=== PATIENT | male | born 1965 | race Caucasian/White ===

== ENCOUNTER 2025-01-26 14:43 | Emergency (ER) | payer BC, MEDICAID, SELFPAY ==
[2025-01-26 14:52] VITALS: BP 134/103; PULSE 95; RESP 17; TEMP 36.8; O2SAT 96; BMI 25.0
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
--- NOTE | 2025-01-26 15:00 | ECG_ITS ---
[facility]: 2025-01[facility]26 Pat Name: Martin Eisenberg Department: Room: Gender: Male Political Advisor: : 1965 Requested By: Carmine Wang Order Number: [id number] Gordon MD: Clif Roblero M.D. Measurements Intervals [place] Rate: 71 P: 86 ME: 160 QRS: 58 QRSD: 73 T: 83 QT: 355 QTc: 388 Interpretive Statements SINUS RHYTHM No previous ECG available for comparison Electronically Signed On 01-26-2025 22:17:05 DRILL PRESSER by Clif Roblero M.D. [email or web address]
--- NOTE | 2025-01-26 15:00 | XR_ITS ---
WS: [id number] Portable AP upright chest, 01/26/2025 Clinical Data: fall, chest trauma Comparison: None. Findings: No nodules, masses or effusions are seen. The heart is normal. The pulmonary vascularity is not increased. No pneumonia or pneumothorax is seen. The diaphragms are flattened. The aortic arch and descending thoracic aorta show calcification and tortuosity. There are monitor leads on the chest wall. XR/XR chest 1V portable [id number] Impression: Atherosclerosis and hyperinflation.
[2025-01-26 15:04] VITALS: BP 138/85; PULSE 87; O2SAT 90
[2025-01-26 15:30] VITALS: BP 141/104; PULSE 95; O2SAT 95
[2025-01-26 16:03] LABS: Hematocrit 45.2 % (37-53); Hemoglobin 15.50 g/dL (11.27-16.99); Mean Corpuscular HGB Conc 34.3 g/dL (30-55); Mean Corpuscular Hemoglobin 33.7 pg (27-33); Mean Corpuscular Volume 98.3 fl (82-101); Nucleated Red Blood Cells % 0 %; Platelet Count 234 10^3/cmm (157-399); Red Blood Count 4.60 10^6/uL (3.85-5.65); White Blood Count 4.01 10^3/uL (3.29-11.43)
[2025-01-26 16:28] LABS: Alanine Aminotransferase 25 U/L (0-41); Albumin Level 4.0 g/dL (3.5-5.2); Alkaline Phosphatase 75 U/L (40-130); Anion Gap 18.2 (5-19); Aspartate Amino Transferase 51 U/L (0-40); Blood Urea Nitrogen 9 mg/dL (8-23); Calcium 8.6 mg/dL (8.5-10.5); Carbon Dioxide 27 mmol/L (22-29); Chloride 102 mmol/L (98-107); Creatinine Clr Calc Pharmacy 131.4393; Globulin 2.8 g/dL (1.3-4.6); Glucose 84 mg/dL (65-115); Osmolality Calculated 294 mOsm/kg (285-295); Potassium 4.2 mmol/L (3.5-5.1); Sodium 143 mmol/L (136-145); Total Protein 6.8 g/dL (6.6-8.7)
[2025-01-26 16:32] LABS: Alcohol Level 364 mg/dL (0-10)
[2025-01-26 16:43] VITALS: BP 140/78; PULSE 76; O2SAT 95
[2025-01-26 17:00] VITALS: BP 126/77; PULSE 90; O2SAT 93
[2025-01-26 17:30] VITALS: BP 126/77; PULSE 90; O2SAT 93
--- NOTE | 2025-01-28 07:22 | DCPLANNER ---
messaged [facility] to establish pcp
== END 2025-01-26 19:05 | disposition home or self-care (01) ==
PROVIDERS: Emergency Provider Physician Assistant
DX: F10.129 Alcohol abuse with intoxication, unspecified (principal); Y90.8 Blood alcohol level of 240 mg/100 ml or more; S20.219A Contusion of unspecified front wall of thorax, initial encounter; W19.XXXA Unspecified fall, initial encounter
CPT/HCPCS: 36415; 71045; 80053; 80307; 85025; 93005; 99285

== ENCOUNTER 2025-03-17 14:47 | Inpatient (IN) | payer BC, MEDICAID, SELFPAY ==
--- NOTE | 2025-03-17 14:48 | ECG_ITS ---
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
--- NOTE | 2025-03-17 14:48 | ED.C_ITS ---
HPI - Psych 2 General: Chief Complaint: Psychiatric Symptoms Stated Complaint: MHE Time Seen by Provider: 03/17/25 14:48 History of Present Illness: 59-year-old man with a history of schizo phrenia who presents emergency room with police with concerns for worsening hallucinations and psychosis. He admitted to having done some methamphetamine recently which may have worsened things. He says he has not been taking his medications. He expresses some understanding he is seeing things that are not there. Police report that they have been called out to his house several times. He would call with concerns for people being in his house or on his property and when they would arrive there there would be nothing there. Police say that he had said spoke to see that person right there and there was no one there. Related Data Home Medications ?Medication ?Instructions ?Recorded ?Confirmed No Known Home Medications 01/26/2507/17 Allergies Allergy/AdvReac Type Severity Reaction Status Date / Time No Known Allergies Allergy Verified 01/26/25 14:57 Review of Systems 2 Narrative: Constitutional symptoms: Negative except as documented in HPI. Skin symptoms: Negative except as documented in HPI. Eye symptoms: Negative except as documented in HPI. ENMT symptoms: Negative except as documented in HPI. Respiratory symptoms: Negative except as documented in HPI. Cardiovascular symptoms: Negative except as documented in HPI. Gastrointestinal symptoms: Negative except as documented in HPI. Genitourinary symptoms: Negative except as documented in HPI. Musculoskeletal symptoms: Negative except as documented in HPI. Neurologic symptoms: Negative except as documented in HPI. Psychiatric symptoms: Negative except as documented in HPI. Endocrine symptoms: Negative except as documented in HPI. Physical Exam 2 Narrative: EXAM NARRATIVE: General: Alert, no acute distress. Skin: Warm, dry. Head: Normocephalic, atraumatic. Neck: Supple, trachea midline. Eye: Extraocular movements are intact. Ears, nose, mouth and throat: mucosa moist. Cardiovascular: Regular, Normal peripheral perfusion. Respiratory: Lungs are clear to auscultation, respirations are non-labored, breath sounds are equal, Symmetrical chest wall expansion. Gastrointestinal: Soft, Nontender, Non distended Musculoskeletal: Normal ROM, no deformity. Neurological: Alert and oriented, No focal neurological deficit observed. Psychiatric: Cooperative, patient does have an odd affect. He does admit to seeing things that may not be there. Course 2 Vital Signs: Vital signs: Vital Signs Temperature 98.3 F 03/17/25 14:49 Pulse Rate 95 03/17/25 14:49 Respiratory Rate 16 03/17/25 14:49 Blood Pressure 142/90 03/17/25 14:49 Pulse Oximetry 98 03/17/25 14:49 Oxygen Delivery Me thod Room Air 03/17/25 14:49 MDM - Psych Medical Decision Making Medical decision making: Patient's reason for coming to the emergency room: Brought by police for hallucination Social determinants: Patient is disabled I reviewed the patient's medical record. Patient has no listed other visits to the emergency room here except for in January for chest wall contusion. No previous psychiatric admissions here. I reviewed the patient's current home meds Patient says he is currently taking no meds. Alternate historians: Police Differential diagnosis for patient with reported psychosis with plan for psychiatric admission including but not limited to and based on the above HPI, review of systems and physical exam: concerns for infection, alcohol intoxication, cardiac issues or other medical problems prior to psychiatric admission. Orders placed to evaluate differential diagnosis based on the above differential, HPI and physical exam labwork, ekg ordered to evaluate the pathologies and to clear the patient medically prior to psychiatric admission EKG: Time 1523. Rate 76. Normal sinus rhythm, No ST-T changes, PVCs, normal [place] & QRS intervals, This was reviewed and interpreted by myself the ER physician at 1530 Lab Review: Laboratory results were reviewed and interpreted by myself the emergency room physician. - Medically cleared. - EKG shows no ischemic changes. - Blood alcohol level is negative, as well as salicylate and Tylenol. - Drug screen and urinalysis are pending at admission - No anemia. - BUN and creatinine are within normal limits. Assessment of risk - Level of risk: Moderate to high risk. Patient is noncompliant with medications and having worsening hallucinations and drug abuse - Was hospitalization considered? Patient placed on a hold and admitted. Consultation: I spoke with Dr. Pal who is on-call for psychiatry who agrees to admission Assessment and plan: Psychosis Schizophrenia Medical noncompliance -Admission to neuropsychiatric unit for continued evaluation and treatment. - All lab work was reviewed and interpreted personally by myself, the ER physician - Evaluation and treatment of this problem were appropriate in the emergency setting Lab Data 03/17/25 15:05 03/17/25 15:05 Laboratory Results WBC 7.91 10^3/uL (3.29-11.43) 03/17/25 15:05 RBC 4.66 10^6/uL (3.85-5.65) 03/17/25 15:05 Hgb 15.60 g/dL (11.27-16.99) 03/17/25 15:05 Hct 49.0 % (37-53) 03/17/25 15:05 MCV 105.2 fl (82-101) H 03/17/25 15:05 MCH 33.5 pg (27-33) H 03/17/25 15:05 MCHC 31.8 g/dL (30-55) 03/17/25 15:05 RDW 12.8 % (12.1-15.1) 03/17/25 15:05 Plt Count 205 10^3/cmm (157-399) 03/17/25 15:05 MPV 10.4 fL (7.4-10.4) 03/17/25 15:05 Neut % (Auto) 78.1 % 03/17/25 15:05 Lymph % (Auto) 11.8 % 03/17/25 15:05 [place] % (Auto) 9.0 % 03/17/25 15:05 Eos % (Auto) 0.1 % 03/17/25 15:05 Baso % (Auto) 0.6 % 03/17/25 15:05 Neut # (Auto) 6.18 10^3/uL (1.8-7.7) 03/17/25 15:05 Lymph # (Auto) 0.9 10^3/uL (0.8-4.8) 03/17/25 15:05 [place] # (Auto) 0.7 10^3/uL (0.2-0.9) 03/17/25 15:05 Eos # (Auto) 0.0 10^3/uL (0.0-0.8) 03/17/25 15:05 Baso # (Auto) 0.1 10^3/uL (0.0-0.1) 03/17/25 15:05 Nucleated RBC % (auto) 0 % 03/17/25 15:05 Nucleated RBCs # 0.0 /100WBC 03/17/25 15:05 Sodium 136 mmol/L (136-145) 03/17/25 15:05 Potassium 3.3 mmol/L (3.5-5.1) L 03/17/25 15:05 Chloride 94 mmol/L (98-107) L 03/17/25 15:05 Carbon Dioxide 25 mmol/L (22-29) 03/17/25 15:05 Anion Gap 20.3 (5-19) H 03/17/25 15:05 BUN 22 mg/dL (8-23) 03/17/25 15:05 Creatinine 1.0 mg/dL (0.7-1.2) 03/17/25 15:05 GFR Calculation 76.2 mL/min (90-130) L 03/17/25 15:05 Glucose 105 mg/dL (65-115) 03/17/25 15:05 Calculated Osmolality 286 mOsm/kg (285-295) 03/17/25 15:05 Calcium 9.9 mg/dL (8.5-10.5) 03/17/25 15:05 Total Bilirubin 1.5 mg/dL (0.15-1.2) H 03/17/25 15:05 AST 72 U/L (0-40) H 03/17/25 15:05 ALT 46 U/L (0-41) H 03/17/25 15:05 Alkaline Phosphatase 81 U/L (40-130) 03/17/25 15:05 Total Protein 7.7 g/dL (6.6-8.7) 03/17/25 15:05 Albumin 4.6 g/dL (3.5-5.2) 03/17/25 15:05 Globulin 3.1 g/dL (1.3-4.6) 03/17/25 15:05 TSH 3.20 uIU/mL (0.27-4.20) 03/17/25 15:05 Salicylates < 0.3 mg/dL (3-10) L 03/17/25 15:05 Acetaminophen < 5.0 ug/mL (10-30) L 03/17/25 15:05 Ethyl Alcohol < 10 mg/dL (0-10) 03/17/25 15:05 No radiology studies performed this visit Discharge Plan Discharge Patient Disposition: Admitted As Inpatient Admit Provider: Mac Pal Clinical Impression: Acute psychosis, Chronic schizophrenia, Medical non-compliance Condition: Stable Coding Level of Care Code ED Accountant Auditor for Topher Ross
[2025-03-17 14:49] VITALS: BP 142/90; PULSE 95; RESP 16; TEMP 36.8; O2SAT 98; BMI 25.0
--- OUTSIDE RECORDS SUMMARY | 2025-03-17 14:51 | XMS_ITS | Encounter Summary ---
Author Organization [facility] Address [address] [place] [address] Care Team Providers Care Food And Beverage Director Name Role Phone Unavailable Primary Care Provider Unavailabl e Reason for Visit * Reason Comments Provider Call Encounter Details Date Type Department Care Team ([facility] st Contact Info) Description 04/07/2024 Telephone [facility] Family Medicine [facility] [place] [address] [place] [address] Sandip Dodge DO [address] [place] [address] Provider Call Social History Tobacco Use Types Packs/Day Years Used Date Smoking Tobacco: Heavy Smoker Cigarettes Smokeless Tobacco: Never Alcohol Use Standard Drinks/Week Comments Yes 0 (1 standard drink = 0.6 oz pur e alcohol) Sex and Gender Information Value Date Recorded Sex Assigned at Not on file Legal 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 Topic: [facility]erse[facility]-Bpnuwiej Call >> Apr 07, 2024 11:11 AM Josselin Erich wrote: Caller is requesting to speak with Clinical Care Team. Caller Name: Marcy ([employer]) Callback Number: [phone] Clinician Type: Other healthcare professional not listed above Call Notes: Marcy calling for NPI numbers. Information provided. Is this addressing an immediate patient care need? No OVEMENT DIRECTOR documented in this encounter Plan of Treatment Not on file documented as of this encounter Visit Diagnoses Not on filedocumented in this encounter Additional Health Concerns Infection Onset Date Last Indicated Resolved Time R/O Respiratory 10/01/2024 10/01/2024 10/01/2024 6 :18 PM CDT R/O GI Pathogen 10/02/2024 10/02/2024 10/03/2024 1 2:57 PM CDT documented as of this encounter
--- OUTSIDE RECORDS SUMMARY | 2025-03-17 14:51 | XMS_ITS | Encounter Summary ---
Author Organization [facility] Address [address] [place] [address] Care Team Providers Care Industrial Renderer Name Role Phone Unavailable Primary Care Provider Unavailabl e Reason for Visit * Reason Comments Needs Form Or Letter Filled Out Encounter Details Date Type Department Care Team (Late st Contact Info) Description 07/23/2024 Telephone [facility] Family Medicine [facility] [address] [place] [phone] Douglas Moss, DO [address] [place] [phone] Needs Form Or Letter Filled Out Social History Tobacco Use Types Packs/Day Years Used Date Smoking Tobacco: Heavy Smoker Cigarettes Passive Smoke Exposure: Current Smokeless Tobacco: Never Alcohol Use Standard Drinks/Week Comments Yes 0 (1 standard drink = 0.6 oz pur e alcohol) ocationally Sex and Gender Information Value Date Recorded Sex Assigned at Not on file 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 Topic: Patient or Caregiver Communication Request >> July 23, 2024 1:10 PM Mendez Infante wrote: Patient or Caregiver requesting that a message be sent to Care Team Caller: Tete with ALYSSA Lopez License Office Patient/Caregiver Callback Number: [phone] Call Notes: ALYSSA Jolly License Office stated physician statement for handicap placard can only be up to 180 days but one patient provided goes for 1 year. PHONE# [phone] documented in this encounter Plan of Treatment [...]
--- OUTSIDE RECORDS SUMMARY | 2025-03-17 14:51 | XMS_ITS | Encounter Summary ---
Author Organization [facility] Address [address] [place] [address] Care Team Providers Care Gang Worker Name Role Phone Unavailable Primary Care Provider Unavailabl e Encounter Details Date Type Department Care Team (Late st Contact Info) Description 03/16/2025 External Device Data [place] ABSTRACTION Provider, Abstract NO ADDRESS ON FILE Social History Tobacco Use Types Packs/Day Years Used Date Smoking Tobacco: Heavy Smoker Cigarettes Passive Smoke Exposure: Current Smokeless Tobacco: Never Alcohol Use Standard Drinks/Week Comments Yes 0 (1 standard drink = 0.6 oz pur e alcohol) ocationally Feeling Safe Answer Date Recorded Are you in a relationship wi th someone who hurts you emotionally and/or physically? 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
--- OUTSIDE RECORDS SUMMARY | 2025-03-17 14:51 | XMS_ITS | Clinical Summary ---
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 30 Capsule 1 04/28/2024 Active mirtazapine (REMERON) 15 mg tabletIndication s:PTSD (post-traumatic stress disorder),Primar y insomnia Take 1 Tablet (15 mg) by mouth daily. 30 Tablet 1 04/28/2024 Active warfarin (COUMADIN) 7.5 mg tabletIndication s:Closed displaced fracture of posterior wall of right acetabulum with delayed healing, subsequent encounter,Antico agulant long-term use Take 1 Tablet (7.5 mg) by mouth daily. 30 Tablet 1 04/28/2024 Active amLODIPine (NORVASC) 5 mg tablet Take 1 Tablet (5 mg) by mouth daily. 30 Tablet 1 10/05/2024 Active thiamine mononitrate (VITAMIN B-1) 100 mg tablet Take 1 Tablet (100 mg) by mouth daily. 30 Tablet 1 10/05/2024 Active metroNIDAZOLE (FLAGYL) 250 mg tabletIndication s:H. pylori infection Take 1 Tablet (250 mg) by mouth 4 times daily. X 2 WEEKS 56 Tablet 10/12/2024 Active Active Problems Problem Noted Date Diagnosed Date Abdominal pain 10/02/2024 Chest pain 10/02/2024 GIB (gastrointestinal bleeding) 10/01/2024 Syncope 10/01/2024 S/P Girdlestone procedure 07/20/2020 Protein-calorie malnutrition, moderate 0 Noncompliance with therapeutic plan 03/22/2020 Acetabulum fracture, right 03/21/2020 Overview (07/22/2020): Added automatically from request for surgery [id number] Acute blood loss anemia 03/11/2020 Hyperglycemia 03/11/2020 Moderate protein-calorie malnutrition 03/11/2020 Closed displaced fracture of posterior wall of right acetabulum 03/10/2020 Closed fracture dislocation of right hip joint 1 05/11/2019 Alcohol use disorder, severe, dependence Major depressive disorder, r ecurrent severe without psychotic features 02/22/2020 Chronic hepatitis C without hepatic coma Overview (07/22/2020): Chronic Hepatitis C genotype ?, treatment naive, viral load 4,120,000, APRI 0.26 Elevated LFTs Resolved Problems Problem Noted Date Diagnosed Date Resolved Date Suicidal ideation 02/21/2020 03/10/2020 Chronic left-sided low back pain with left-sided sciatica 02/10/2019 03/10/2020 Hypokalemia 07/18/2016 03/10/2020 Chest pain 10/20/2015 03/10/2020 Alcohol dependence with intoxication 10/20/2015 03/10/2020 Alcohol dependence with into xication with complication 03/10/2020 Cough 03/10/2020 Abrasion of right hand and fingers 03/10/2020 Alcoholic intoxication with complication 03/10/2020 Encounters Date Type Department Care Team Description 03/16/2025 External Device Data [facility] ABSTRACTION Provider, Abstract 02/02/2025 External Device Data [facility] ABSTRACTION Provider, Abstract 02/02/2025 External Device Data [facility] ABSTRACTION Provider, Abstract 01/05/2025 External Device Data [facility] ABSTRACTION Provider, Abstract from Last 3 Months Immunizations Immunization Administration Dates Next Due (ADACEL/BOOSTRIX)(10 YR UP) TDAP VACCINE, 0.5ML, IM 04/18/2017 (PNEUMOVAX 23)(50 YRS UP) PN EUMOCOCCAL POLYSACCHARIDE (PPV23) 0.5 ML, IM 10/21/2015 INFLUENZA VACCINE QUADRIVALENT 6 MOS UP PF IM Family History Medical History Relation Name Comments Heart Disease Father Heart Surgery Father Relation Name Status Comments Father Mother Social History Tobacco Use Types Packs/Day Years Used Date Smoking Tobacco: Heavy Smoker Cigarettes Passive Smoke Exposure: Current Smokeless Tobacco: Never Tobacco Cessation:Ready to Q uit: Not Asked; Counseling Given: Not Answered Alcohol Use Standard Drinks/Week Comments Yes 0 [...] on file 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 Gender Identity Not on file Sexual Orientation Not on file Last Filed Vital Signs Vital Sign Reading Time Taken Comments Blood Pressure 146/97 10/04/2024 3:27 PM CDT Pulse 73 10/04/2024 3:27 PM CDT Temperature 36.5 C (97.7 F) 10/04/2024 3:27 PM CDT Respiratory Rate 16 10/04/2024 3:27 PM CDT Oxygen Saturation 96% 10/04/2024 3:27 PM CDT Inhaled Oxygen Concentration - - Weight 73.6 kg (162 lb 4.8 oz) 10/04/2024 4:57 A M CDT Height 180.3 cm (5' 11 ) 10/02/2024 1:05 AM CDT Body Mass Index 22.64 10/02/2024 1:05 AM CDT Plan of Treatment Health Maintenance Due Date Last Done Comments COLORECTAL SCREENING 2009 Colorectal Cancer Screening 2009 FIT-DNA Q 3 years 2009 FIT/FOBT Q 1 year 2009 Flex Sig/CT Colonography Q 5 years 2009 RSV VACCINE (60+ or ) (1 - Risk 50-74 years 1-dose series) 2014 ZOSTER VACCINE (1 of 2) 2014 HEPATITIS B VACCINES (1 of 3 - Risk 3-dose series) INFLUENZA VACCINE (#1) 2024 12/30/2018 DTAP/TDAP/TD VACCINES (2 - Td or Tdap) 04/18/2027 Medical Devices Implanted Type Area Psychiatric Aides Teacher Device Identifier Shelf Expiration Date Model / Serial / Lot Clip Ligating Horizon Med Ti 167129 - Csc - [id number] Implanted:Qty : 1 on 03/10/2020 by Hernesto Johnson MD Clip Right: Pelvis TELEFLEX- WECK CLOSURE SYS [id number] 05/24/2024 [id number] / / [id number] Plate Recon Lp 6h 3.5mm 02.100.206 - [id number] Implanted:Qty : 1 on 03/10/2020 by Hernesto Johnson MD Plate Right: Pelvis SYNTHES STRATEC [id number] 02.100.206 / / [id number] MAIN-01 Plate Recon Lp 8h 3.5mm 02.100.208 - [id number] Implanted:Qty : 1 on 03/10/2020 by Hernesto Johnson MD Plate Right: Pelvis SYNTHES-STRATEC - MAXIFACIAL [id number] 02.100.208 / / [id number] MAIN-[address] Stdrv 3.5x24mm 02.200.024 - [id number] Implanted:Qty : 1 on 03/10/2020 by Hernesto Johnson MD Screw Right: Pelvis SYNTHES-STRATEC - MAXIFACIAL [id number] 02.200.024 / / [id number] MAIN-[address] Stdrv 3.5x30mm 02.200.030 - [id number] Implanted:Qty : 1 on 03/10/2020 by Hernesto Johnson MD Screw Right: Pelvis SYNTHES-STRATEC - MAXIFACIAL [id number] 02.200.030 / / [id number] MAIN-[address] Stdrv 3.5x38mm 02.200.038 - [id number] Implanted:Qty : 1 on 03/10/2020 by Hernesto Johnson MD Screw Right: Pelvis SYNTHES-STRATEC - MAXIFACIAL [id number] 02.200.038 / / [id number] MAIN- Screw St Stdrv 3.5x38mm 02.200.038 - [id number] Implanted:Qty : 1 on 03/10/2020 by Hernesto Johnson MD Screw Right: Pelvis SYNTHES-STRATEC - MAXIFACIAL [id number] 02.200.038 / / [id number] MAIN- Screw St Stdrv 3.5x60mm 02.200.060 - [id number] Implanted:Qty : 1 on 03/10/2020 by Hernesto Johnson MD Screw Right: Pelvis SYNTHES-STRATEC - MAXIFACIAL [id number] 02.200.060 / / [id number] MAIN- Screw St Stdrv 3.5x60mm 02.200.060 - [id number] Implanted:Qty : 1 on 03/10/2020 by Hernesto Johnson MD Screw Right: Pelvis SYNTHES-STRATEC - MAXIFACIAL [id number] 02.200.060 / / [id number] MAIN- Screw St Stdrv 3.5x70mm 02.200.070 - [id number] Implanted:Qty : 1 on 03/10/2020 by Hernesto Johnson MD Screw Right: Pelvis SYNTHES-STRATEC - MAXIFACIAL [id number] 02.200.070 / / [id number] MAIN- Bone Chips Canc 15ml [id number] - [id number] Implanted:Qty : 1 on 03/10/2020 by Hernesto Johnson MD Tissue Right: Pelvis ALLOSOURCE [id number] 01/16/2025 [id number] / [id number] / 2025-01-16 4mm Cortex 22mm Screw Implanted:Qty : 1 on 03/10/2020 by Hernesto Johnson MD Right: Pelvis SYNTHES ORTHO - 206.422 / / [id number] MAIN- Screw Crtx Stp 4 044mm Implanted:Qty : 1 on 03/10/2020 by Hernesto Johnson MD Right: Pelvis SYNTHES STRATEC [id number] 206.444 / / [id number] MAIN- Explanted Type Area Psychiatric Aides Teacher Device Identifier Shelf Expiration Date Model / Serial / Lot Screw St Stdrv 3.5x26mm 02.200.026 - [id number] Implanted: by Hernesto Johnson MD (Quantity not on file) Explanted:Qty : 1 on 03/10/2020 Screw Right: Pelvis SYNTHES-STRATEC- MAXIFACIAL [id number] 02.200.02 6 / [id number] 40MAIN-[address] Stdrv 3.5x44mm 02.200.044 - [id number] Implanted: by Hernesto Johnson MD (Quantity not on file) Explanted:Qty : 1 on 03/10/2020 Screw Right: Pelvis SYNTHES-STRATEC- MAXIFACIAL [id number] 02.200.04 4 [id number] 40MAIN-01 Screw Schanz 5.7m216ph 294.786 - [id number] Implanted: by Hernesto Johnson MD (Quantity not on file) Explanted:Qty : 1 on 03/10/2020 Screw Right: Pelvis SYNTHES STRATEC [id number] 294.786 / / [id number] 40MAIN-01 Screw Bone Ss Crtx Ftrd 4x24mm Implanted: by Hernesto Johnson MD (Quantity not on file) Explanted:Qty : 1 on 03/10/2020 Right: Pelvis SYNTHES STRATEC [id number] 206.424 / / [id number] 40MAIN-01 Screw Crtx Stp 4 030mm Implanted: by Hernesto Johnson MD (Quantity not on file) Explanted:Qty : 1 on 03/10/2020 Right: Pelvis SYNTHES STRATEC [id number] 206.430 / / [id number] 40MAIN-01 Insurance MEDICAID * Guarantor: LUI GOYAL Account Type Relation to Patient Date of Phone Billing Address Personal/Family [address] [place] [address] RX INFOCROSSING Medicaid Advance Directives For more information, please contact: [phone] * Full Code (Latest Code Status on File) Date Activated Date Inactivated Comments 10/01/2024 10:23 PM 10/04/2024 7:47 PM
--- NOTE | 2025-03-17 14:55 | PC.NURSE ---
pt took underwear off, shook them out, put them back on. no contraband noted.
[2025-03-17 15:11] LABS: Hematocrit 49.0 % (37-53); Hemoglobin 15.60 g/dL (11.27-16.99); Mean Corpuscular HGB Conc 31.8 g/dL (30-55); Mean Corpuscular Hemoglobin 33.5 pg (27-33); Mean Corpuscular Volume 105.2 fl (82-101); Nucleated Red Blood Cells % 0 %; Platelet Count 205 10^3/cmm (157-399); Red Blood Count 4.66 10^6/uL (3.85-5.65); White Blood Count 7.91 10^3/uL (3.29-11.43)
[2025-03-17 15:36] LABS: Alanine Aminotransferase 46 U/L (0-41); Albumin Level 4.6 g/dL (3.5-5.2); Alkaline Phosphatase 81 U/L (40-130); Anion Gap 20.3 (5-19); Aspartate Amino Transferase 72 U/L (0-40); Blood Urea Nitrogen 22 mg/dL (8-23); Calcium 9.9 mg/dL (8.5-10.5); Carbon Dioxide 25 mmol/L (22-29); Chloride 94 mmol/L (98-107); Globulin 3.1 g/dL (1.3-4.6); Glucose 105 mg/dL (65-115); Osmolality Calculated 286 mOsm/kg (285-295); Potassium 3.3 mmol/L (3.5-5.1); Sodium 136 mmol/L (136-145); Thyroid Stimulating Hormone 3.20 uIU/mL (0.27-4.20); Total Protein 7.7 g/dL (6.6-8.7)
[2025-03-17 15:37] LABS: Acetaminophen < 5.0 ug/mL (10-30); Alcohol Level < 10 mg/dL (0-10); Salicylate < 0.3 mg/dL (3-10)
--- NOTE | 2025-03-17 16:16 | PC.NURSE ---
96 hr rights reviewed with pt @5660 with assistance of [facility] security alarm installer X1. All education reviewed with pt at this time. Pt verbalized understanding to hold parameters, and had no further questions for HS when asked. Copy of rights placed with pt belongings. 1:1 PSA remains at bedside with pt. [place] provided. No further needs at this time.
[2025-03-17 16:43] VITALS: BP 140/80; PULSE 110; RESP 20; TEMP 36.9; O2SAT 98
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
[2025-03-17 19:57] VITALS: BP 110/69; PULSE 92; RESP 19; TEMP 36.4; O2SAT 97
[2025-03-17] MEDS: fixodent 39 gm Tube 1 APPLIC DENTAL (21:04)
[2025-03-18] VITALS: BP 120/70; PULSE 85; RESP 17; TEMP 36.2; O2SAT 96
[2025-03-18 04:00] VITALS: BP 112/61; PULSE 93; RESP 17; TEMP 36.4; O2SAT 99
[2025-03-18] MEDS: multivitamin therapeutic Tablet 1 TAB PO (07:38)
[2025-03-18] MEDS: fixodent 39 gm Tube 1 APPLIC DENTAL (07:39)
[2025-03-18 07:42] VITALS: BP 119/74; PULSE 94; RESP 16; TEMP 36.6; O2SAT 97
[2025-03-18 07:55] LABS: Glucose Urine UA Negative (Normal); Nitrate Urine Negative (Negative)
[2025-03-18 07:57] LABS: Add Urine Microscopic? YES
[2025-03-18 08:00] LABS: Specific Gravity, Urine 1.032 (1.005-1.030)
[2025-03-18 08:09] LABS: PCP Screen Urine Negative (Negative)
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
[2025-03-18 12:00] VITALS: BP 117/80; PULSE 70; RESP 16; TEMP 37; O2SAT 98
[2025-03-18 15:28] VITALS: BP 114/78; PULSE 72; RESP 16; TEMP 37; O2SAT 92
[2025-03-18 20:00] VITALS: BP 121/82; PULSE 88; RESP 18; TEMP 36.9; O2SAT 98
--- NOTE | 2025-03-19 06:42 | PC.NURSE ---
vitals vs not collected pt asleep, nurse aware, resp 14
[2025-03-19] MEDS: multivitamin therapeutic Tablet 1 TAB PO (08:08)
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
[2025-03-19 13:55] VITALS: BP 123/80; PULSE 91; RESP 16; TEMP 36.9; O2SAT 97
[2025-03-19 21:04] VITALS: BP 110/73; PULSE 86; RESP 17; TEMP 36.6; O2SAT 96
[2025-03-20 06:00] VITALS: RESP 16
--- NOTE | 2025-03-20 06:36 | PC.NURSE ---
vs not completed pt sleeping soundly resp 16 nurse aware
[2025-03-20] MEDS: multivitamin therapeutic Tablet 1 TAB PO (08:18)
[2025-03-20 14:00] VITALS: BP 130/79; PULSE 77; RESP 16; TEMP 36.6; O2SAT 98
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
[2025-03-20 21:17] VITALS: BP 115/69; PULSE 76; RESP 18; TEMP 36.7; O2SAT 98
[2025-03-21 06:00] VITALS: RESP 16; BMI 23.3
--- NOTE | 2025-03-21 06:37 | PC.NURSE ---
vs not collected, pt asleep, nurse aware, resp 16
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
[2025-03-21] MEDS: multivitamin therapeutic Tablet 1 TAB PO (07:53)
[2025-03-21 14:00] VITALS: BP 140/83; PULSE 80; RESP 18; TEMP 36.4; O2SAT 99
[2025-03-21 21:23] VITALS: BP 129/75; PULSE 81; RESP 16; TEMP 36.6; O2SAT 99
[2025-03-22 06:00] VITALS: RESP 14
--- NOTE | 2025-03-22 06:27 | PC.NURSE ---
vs not collected, pt asleep, nurse aware, resp 14
[2025-03-22] MEDS: multivitamin therapeutic Tablet 1 TAB PO (08:11)
[2025-03-22 13:37] VITALS: BP 128/88; PULSE 73; RESP 17; TEMP 36.3; O2SAT 98
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
[2025-03-22 19:49] VITALS: BP 148/85; PULSE 68; RESP 17; TEMP 36.7; O2SAT 98
--- NOTE | 2025-03-23 06:44 | PC.NURSE ---
vitals vs not collected pt playing in bed with both eyes closed resp 16 nurse notified
[2025-03-23] MEDS: multivitamin therapeutic Tablet 1 TAB PO (08:03)
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
[2025-03-23 13:45] VITALS: BP 148/85; PULSE 68; RESP 17; TEMP 36.6; O2SAT 98
== END 2025-03-23 14:05 | disposition home or self-care (01) | DRG 750 ==
LOC: ER 15:07 → NP 15:17
PROVIDERS: Admitting Provider Psychiatry & Neurology Psychiatry; Emergency Provider Emergency Medicine; Visit Provider Psychiatry & Neurology Psychiatry
DX: F20.9 Schizophrenia, unspecified (principal); F10.20 Alcohol dependence, uncomplicated; Z63.4 Disappearance and death of family member; Z91.148 Patient's other noncompliance with medication regimen for other reason; F41.9 Anxiety disorder, unspecified; R26.0 Ataxic gait
CPT/HCPCS: 36415; 80053; 80306; 80307; 81001; 84443; 85025; 93005; 97110; 97150; 97161; 97165; 99285; J9999